=== PATIENT | female | born 1945 | race Caucasian/White ===

== ENCOUNTER 2021-03-31 13:31 | Observation (INO) | payer MEDICARE ==
--- NOTE | 2021-03-31 14:03 | ED ---
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 The patient states that since October she's been unable to ambulate. She has been in and out of a nursing facility in [place] and was recently discharged yesterday. She has been living with her daughter and son-in-law however they've been and able to care for at home. They've an unable to get her to the bathroom so they called EMS today to take her the hospital. The patient states that she has not been evaluated for her generalized weakness. She is unsure exactly what why or how it started. The patient states that she has no new complaints except for just having generalized weakness and inability to ambulate. She states that she does have a history of stroke with left-sided weakness which may be a little bit worse than normal however not significantly so. She is on chronic oxygen at 4 L for her COPD. She states that she has not felt more short of breath. She does admit to fevers however unsure exactly how high. No new cough. No chest pain. She admits to some abdominal pain with taking her pills however nothing currently. No nausea, vomiting. She does admit to intermittent episodes of diarrhea however denies any recent antibiotic use. She denies any dysuria or hematuria however states that she has had a history of UTI causing generalized weakness. The patient is amenable to placement. At baseline the patient says that she was able to ambulate with a walker or cane. Complaint: generalized weakness - Related Data Home Medications Medication Instructions Recorded Confirmed Albuterol Inhaler [Ventolin Hfa 2 puff INHALATION RT-DAILY 03/31/21 03/31/21 Inhaler] Albuterol Nebulized [Ventolin 2.5 mg INHALATION Q6H PRN 03/31/21 03/31/21 Nebulized] Ammonium Lactate Lotion 1 applic TOPICAL BID 03/31/21 03/31/21 [Lac-Hydrin 12% Lotion] Atorvastatin [Lipitor] 40 mg PO DAILY 03/31/21 03/31/21 Budesonide [Pulmicort Flexhaler] 1 puff INHALATION RT-BID 03/31/21 03/31/21 Clopidogrel [Plavix] 75 mg PO DAILY 03/31/21 03/31/21 DULoxetine HCL [Cymbalta] 30 mg PO DAILY 03/31/21 03/31/21 Dexamethasone [Decadron] 4 mg PO DAILY 03/31/21 03/31/21 Dexamethasone [Decadron] 6 mg PO DAILY 03/31/21 03/31/21 Docusate [Colace] 100 mg PO BID 03/31/21 03/31/21 Enoxaparin [Lovenox] 40 mg SQ Q12H 03/31/21 03/31/21 Furosemide [Lasix] 20 mg PO DAILY 03/31/21 03/31/21 INSULIN LISPRO (humaLOG) [humaLOG] See Protocol SQ ACHS 03/31/21 03/31/21 Ibuprofen [Motrin] 400 mg PO Q12H PRN 03/31/21 03/31/21 Levothyroxine Sodium [Synthroid] 100 mcg PO DAILY 03/31/21 03/31/21 Melatonin 3 mg PO HS 03/31/21 03/31/21 Metoprolol Tartrate [Lopressor] 25 mg PO DAILY 03/31/21 03/31/21 Mometasone Inhalr 220 Mcg/Puff 1 puff INHALATION RT-BID 03/31/21 03/31/21 [Asmanex] Multivitamins, Thera [Multivitamin 1 tab PO DAILY 03/31/21 03/31/21 (formulary)] Pantoprazole Sodium [Protonix] 40 mg PO DAILY 03/31/21 03/31/21 Sennosides [Senna] 17.2 mg PO BID 03/31/21 03/31/21 Tamsulosin HCl [Flomax] 0.4 mg PO DAILY 03/31/21 03/31/21 Tiotropium [place] [Spiriva] 2 puff INHALATION RT-DAILY 03/31/21 03/31/21 amLODIPine [Norvasc] 5 mg PO DAILY 03/31/21 03/31/21 guaiFENesin [guaiFENesin Oral 200 mg PO Q6H PRN 03/31/21 03/31/21 Solution] hydrALAZINE HCL [Apresoline] 25 mg PO BID 03/31/21 03/31/21 levETIRAcetam [Keppra] 500 mg PO Q12HR 03/31/21 03/31/21 predniSONE [Deltasone] 20 mg PO DAILY 03/31/21 03/31/21 traMADol HCL [Ultram] 50 mg PO Q8H PRN 03/31/21 03/31/21 Allergies Allergy/AdvReac Type Severity Reaction Status Date / Time Penicillins Allergy Unknown Verified 03/31/21 16:04 Review of Systems ROS Statement: Those systems with pertinent positive or pertinent negative responses have been documented in the HPI. ROS Other: All systems not noted in ROS Statement are negative. General Exam - General Exam Comments Initial Comments: Constitutional: Awake alert Appears comfortable, obese Head: Normocephalic atraumatic Eyes: no conjunctival injection No scleral icterus EOMI Neck: No JVD Supple Heart: Regular rate rhythm normal S1-S2 no murmurs Lungs: Conversational dyspnea Clear to auscultation bilaterally No wheezing No rales Abdomen: Soft nondistended nontender Extremities: Non edematous DP pulses intact Radial pulses intact Neuro: A&Ox3, 4/5 strength in bilateral lower extremities, 5 out of 5 strength with holding her arms up in upper extremities, cranial nerves II through XII are grossly intact No focal neurologic deficits Psych: Appropriate mood and affect Course Vital Signs 03/31/21 03/31/21 03/31/21 13:40 17:00 17:58 Temperature 97.8 F 98.2 F Pulse Rate 96 82 86 Respiratory 20 16 18 Rate Blood Pressure 130/78 148/78 151/88 O2 Sat by Pulse 99 98 99 Oximetry - Reevaluation(s) Reevaluation #1: 03/31/21 18:45 I spoke with Charles fire protection engineering technician about the patient. He stated that we could attempt to help find a place but may not be able to find placement for the patient. I spoke with son Alejandro and updated him that he may have to private pay or that we may not be able to place the patient overnight. He stated he understood. EKG Findings - EKG Comments: EKG Findings:: EKG showing normal sinus rhythm with a rate of 94. No abnormal ST segment changes or T-wave inversions. QTC is 440. Other intervals normal. No ectopy. Medical Decision Making - Medical Decision Making This is a 75-year-old female presents emergency department because of the family's inability take take care of her. The patient is not able to walk and family is unable to assist her or help her with her medications. She supposed to be on a CPAP at night and they do not have this as well. The patient also had evidence for skin breakdown on her sacral region. These appeared clean however. Unfortunately it sounds like the insurance has run up and I'm unsure if the patient can be able to be placed. I did speak with the social sciences department chair who was on-call who stated that they would attempt to help the son to find placement for however stated that he may need to pay out of pocket. The son was updated on this. I did speak with Dr. Monge who excepted the patient for observation for tonight however the patient may be discharged back to home tomorrow if placement is unable to be found. Some was updated on this and agrees with plan of care. - Lab Data Result diagrams: 03/31/21 15:07 03/31/21 15:07 Lab Results 03/31/21 03/31/21 03/31/21 Range/Units 15:07 15:07 15:07 WBC 10.6 (3.8-10.6) k/uL RBC 4.93 (3.80-5.40) m/uL Hgb 14.3 (11.4-16.0) gm/dL Hct 43.1 (34.0-46.0) % MCV 87.5 (80.0-100.0) fL MCH 29.0 (25.0-35.0) pg MCHC 33.1 (31.0-37.0) g/dL RDW 16.4 H (11.5-15.5) % Plt Count 187 (150-450) k/uL MPV 7.2 Neutrophils % 87 % Lymphocytes % 6 % Monocytes % 4 % Eosinophils % 2 % Basophils % 0 % Neutrophils # 9.2 H (1.3-7.7) k/uL Lymphocytes # 0.6 L (1.0-4.8) k/uL Monocytes # 0.4 (0-1.0) k/uL Eosinophils # 0.2 (0-0.7) k/uL Basophils # 0.0 (0-0.2) k/uL Anisocytosis Slight PT 10.4 (9.0-12.0) sec INR 1.0 (<1.2) APTT 20.1 L (22.0-30.0) sec Sodium (137-145) mmol/L Potassium (3.5-5.1) mmol/L Chloride (98-107) mmol/L Carbon Dioxide (22-30) mmol/L Anion Gap mmol/L BUN (7-17) mg/dL Creatinine (0.52-1.04) mg/dL Est GFR (CKD-EPI)AfAm (>60 ml/min/1.73 sqM) Est GFR (CKD-EPI)NonAf (>60 ml/min/1.73 sqM) Glucose (74-99) mg/dL Calcium (8.4-10.2) mg/dL Total Bilirubin (0.2-1.3) mg/dL AST (14-36) U/L ALT (4-34) U/L Alkaline Phosphatase (38-126) U/L Troponin I (0.000-0.034) ng/mL NT-Pro-B Natriuret Pep pg/mL Total Protein (6.3-8.2) g/dL Albumin (3.5-5.0) g/dL Lipase (23-300) U/L Urine Color Yellow Urine Appearance Clear (Clear) Urine pH 5.0 (5.0-8.0) Ur Specific [place] 1.015 (1.001-1.035) Urine Protein Negative (Negative) Urine Glucose (UA) Negative (Negative) Urine Ketones Negative (Negative) Urine Blood Negative (Negative) Urine Nitrite Negative (Negative) Urine Bilirubin Negative (Negative) Urine Urobilinogen <2.0 (<2.0) mg/dL Ur Leukocyte Esterase Negative (Negative) 03/31/21 03/31/21 03/31/21 Range/Units 15:07 15:07 15:07 WBC (3.8-10.6) k/uL RBC (3.80-5.40) m/uL Hgb (11.4-16.0) gm/dL Hct (34.0-46.0) % MCV (80.0-100.0) fL MCH (25.0-35.0) pg MCHC (31.0-37.0) g/dL RDW (11.5-15.5) % Plt Count (150-450) k/uL MPV Neutrophils % % Lymphocytes % % Monocytes % % Eosinophils % % Basophils % % Neutrophils # (1.3-7.7) k/uL Lymphocytes # (1.0-4.8) k/uL Monocytes # (0-1.0) k/uL Eosinophils # (0-0.7) k/uL Basophils # (0-0.2) k/uL Anisocytosis PT (9.0-12.0) sec INR (<1.2) APTT (22.0-30.0) sec Sodium 138 (137-145) mmol/L Potassium 4.7 (3.5-5.1) mmol/L Chloride 96 L (98-107) mmol/L Carbon Dioxide 34 H (22-30) mmol/L Anion Gap 8 mmol/L BUN 33 H (7-17) mg/dL Creatinine 0.67 (0.52-1.04) mg/dL Est GFR (CKD-EPI)AfAm >90 (>60 ml/min/1.73 sqM) Est GFR (CKD-EPI)NonAf 88 (>60 ml/min/1.73 sqM) Glucose 334 H (74-99) mg/dL Calcium 8.8 (8.4-10.2) mg/dL Total Bilirubin 0.7 (0.2-1.3) mg/dL AST 49 H (14-36) U/L ALT 73 H (4-34) U/L Alkaline Phosphatase 119 (38-126) U/L Troponin I 0.018 (0.000-0.034) ng/mL NT-Pro-B Natriuret Pep 345 pg/mL Total Protein 6.1 L (6.3-8.2) g/dL Albumin 3.9 (3.5-5.0) g/dL Lipase 75 (23-300) U/L Urine Color Urine Appearance (Clear) Urine pH (5.0-8.0) Ur Specific [place] (1.001-1.035) Urine Protein (Negative) Urine Glucose (UA) (Negative) Urine Ketones (Negative) Urine Blood (Negative) Urine Nitrite (Negative) Urine Bilirubin (Negative) Urine Urobilinogen (<2.0) mg/dL Ur Leukocyte Esterase (Negative) Disposition Clinical Impression: Ambulatory dysfunction, Sacral decubitus ulcer Disposition: ADMITTED IP TO THIS HOSP Condition: Stable Referrals: Suman Dela Cruz DO [Primary Care Provider] - 1-2 days
[2021-03-31 15:21] LABS: Anisocytosis Slight; Basophils % (A) 0 %; Eosinophils # (A) 0.2 k/uL (0-0.7); Eosinophils % (A) 2 %; HCT 43.1 % (34.0-46.0); HGB 14.3 gm/dL (11.4-16.0); Lymphocytes # (A) 0.6 k/uL (1.0-4.8); Lymphocytes % (A) 6 %; MCHC 33.1 g/dL (31.0-37.0); MCV 87.5 fL (80.0-100.0); Mean Platelet Volume 7.2; Monocytes # (A) 0.4 k/uL (0-1.0); Monocytes % (A) 4 %; Neutrophils # (A) 9.2 k/uL (1.3-7.7); Neutrophils % (A) 87 %; Platelet Count 187 k/uL (150-450); RBC 4.93 m/uL (3.80-5.40); RDW 16.4 % (11.5-15.5); WBC 10.6 k/uL (3.8-10.6)
--- NOTE | 2021-03-31 15:22 | XR ---
EXAMINATION TYPE: XR chest 1V portable DATE OF EXAM: 03/31/2021 COMPARISON: NONE HISTORY: Short of breath TECHNIQUE: Single view FINDINGS: There is poor inspiration and some elevation of the right diaphragm. There is no heart fail ure. Lungs are clear of consolidation. IMPRESSION: Poor inspiration. No pulmonary consolidation or heart failure.
[2021-03-31 15:30] LABS: ALT 73 U/L (4-34); AST 49 U/L (14-36); African American GFR (CKD) >90 (>60 ml/min/1.73 sqM); Albumin 3.9 g/dL (3.5-5.0); Alkaline Phosphatase 119 U/L (38-126); Anion Gap 8 mmol/L; Blood Urea Nitrogen 33 mg/dL (7-17); Calcium 8.8 mg/dL (8.4-10.2); Carbon Dioxide 34 mmol/L (22-30); Chloride 96 mmol/L (98-107); Glucose 334 mg/dL (74-99); Lipase 75 U/L (23-300); Non-African American GFR(CKD) 88 (>60 ml/min/1.73 sqM); Potassium 4.7 mmol/L (3.5-5.1); Sodium 138 mmol/L (137-145); Total Bilirubin 0.7 mg/dL (0.2-1.3); Total Protein 6.1 g/dL (6.3-8.2)
[2021-03-31 15:31] LABS: Prothrombin Time 10.4 sec (9.0-12.0)
[2021-03-31 15:46] LABS: Partial Thromboplastin Time 20.1 sec (22.0-30.0)
--- NOTE | 2021-03-31 17:34 | CT ---
EXAMINATION TYPE: CT brain wo con DATE OF EXAM: 03/31/2021 COMPARISON: None HISTORY: weakness, HX CVA CT DLP: 1142.4 mGycm Automated exposure control for dose reduction was used. There is cerebral cortical atrophy. There is no mass effect nor midline shift. There is no sign of in tracranial hemorrhage. There is wedge-shaped 2 cm area of hypodensity right posterior temporal lobe c onsistent with old cortical infarct. The calvarium is intact. IMPRESSION: Cerebral atrophy. Old right posterior temporal lobe infarct. No acute intracranial abnormality.
[2021-03-31 17:49] LABS: Appearance,Urine Clear (Clear); Bilirubin,Urine Negative (Negative); Blood,Urine Negative (Negative); Color,Urine Yellow; Glucose,Urine (UA) Negative (Negative); Ketones,Urine Negative (Negative); Leukocyte Esterase,Urine Negative (Negative); Nitrite,Urine Negative (Negative); Protein,Urine Negative (Negative); Specific Gravity,Urine 1.015 (1.001-1.035); Urobilinogen,Urine <2.0 mg/dL (<2.0)
[2021-03-31] MEDS ORDERED: NALOXONE 0.4 MG/ML 1 ML VIAL IV PRN (18:02)
[2021-03-31 21:29] LABS: Glucose,Whole Blood 302 mg/dL (75-99)
[2021-03-31] MEDS: INSULIN ASPART (NovoLOG) 100 UNIT/ML VIAL SQ SCH (21:47)
[2021-04-01] MEDS: HYDROcodone/APAP 5-325MG 1 EACH TAB PO PRN (02:25)
[2021-04-01 07:22] LABS: Glucose,Whole Blood 165 mg/dL (75-99)
[2021-04-01] MEDS: INSULIN ASPART (NovoLOG) 100 UNIT/ML VIAL SQ SCH ×5 (08:04→21:18)
[2021-04-01 11:29] LABS: Glucose,Whole Blood 184 mg/dL (75-99)
[2021-04-01] MEDS ORDERED: guaiFENesin SYRUP 100MG/5ML 200 MG/10 ML CUP PO PRN (16:00)
[2021-04-01] MEDS ORDERED: ALBUTEROL NEBULIZED 2.5 MG/3 ML INHALATION PRN (16:00)
[2021-04-01] MEDS ORDERED: traMADol 50 MG TAB PO PRN (16:00)
[2021-04-01 16:10] LABS: Glucose,Whole Blood 221 mg/dL (75-99)
[2021-04-01] MEDS ORDERED: IPRATROPIUM-ALBUTEROL 3 ML NEB INHALATION PRN (16:17)
--- NOTE | 2021-04-01 16:17 | P.HPIM ---
History of Present Illness H&P Date: 04/01/21 Chief Complaint: Generalized Weakness 75 year old woman with history of COPD on 4L home O2, IDDM, HTN/HLD, Hx CVA with left sided weakness presented for generalized weakness. Patient is a moderate historian, however, ER provider sign out and chart review supplements most of history. Patient recently had a stroke with residual left sided weakness, and was placed in rehab in mid-October. Unfortunately, patient did not progress well and after running out of rehab days under her medicare insurance she was discharged home to the care of her family. While there, they noticed that she had difficulty with ambulation and transfers, and was generally weak requiring a significant amount of assistance. They felt that they were unable to care for her adequately at home, and therefore, brought her into the ER with request for placement. Patient herself reports generalized weakness, but otherwise denies f/c/n/v, cp, palps, syncope, cough, dyspnea, abd pain, diarrhea, constipation, dysuria, melena, hematochezia, numbness/weakness of extremities. Patient is afebrile, HDS, and at baseline oxygen requirement. Labs and Images were reviewed. Patient admitted to medicine team for generalized weakness. Review of Systems All Systems reviewed and pertinent positives and negatives noted in HPI, all other symptoms are negative Past Medical History Additional Past Medical History / Comment(s): COPD,Bronchitis and Asthma. obese History of Any Multi-Drug Resistant Organisms: None Reported Past Surgical History: No Surgical Hx Reported Past Anesthesia/Blood Transfusion Reactions: No Reported Reaction Smoking Status: Never smoker Past Alcohol Use History: None Reported Past Drug Use History: None Reported Medications and Allergies Home Medications Medication Instructions Recorded Confirmed Type Albuterol Inhaler [Ventolin Hfa 2 puff INHALATION RT-DAILY 03/31/21 03/31/21 History Inhaler] Albuterol Nebulized [Ventolin 2.5 mg INHALATION Q6H PRN 03/31/21 03/31/21 History Nebulized] Ammonium Lactate Lotion 1 applic TOPICAL BID 03/31/21 03/31/21 History [Lac-Hydrin 12% Lotion] Atorvastatin [Lipitor] 40 mg PO DAILY 03/31/21 03/31/21 History Budesonide [Pulmicort Flexhaler] 1 puff INHALATION RT-BID 03/31/21 03/31/21 History Clopidogrel [Plavix] 75 mg PO DAILY 03/31/21 03/31/21 History DULoxetine HCL [Cymbalta] 30 mg PO DAILY 03/31/21 03/31/21 History Dexamethasone [Decadron] 4 mg PO DAILY 03/31/21 03/31/21 History Dexamethasone [Decadron] 6 mg PO DAILY 03/31/21 03/31/21 History Docusate [Colace] 100 mg PO BID 03/31/21 03/31/21 History Enoxaparin [Lovenox] 40 mg SQ Q12H 03/31/21 03/31/21 History Furosemide [Lasix] 20 mg PO DAILY 03/31/21 03/31/21 History INSULIN LISPRO (humaLOG) [humaLOG] See Protocol SQ ACHS 03/31/21 03/31/21 History Ibuprofen [Motrin] 400 mg PO Q12H PRN 03/31/21 03/31/21 History Levothyroxine Sodium [Synthroid] 100 mcg PO DAILY 03/31/21 03/31/21 History Melatonin 3 mg PO HS 03/31/21 03/31/21 History Metoprolol Tartrate [Lopressor] 25 mg PO DAILY 03/31/21 03/31/21 History Mometasone Inhalr 220 Mcg/Puff 1 puff INHALATION RT-BID 03/31/21 03/31/21 History [Asmanex] Multivitamins, Thera [Multivitamin 1 tab PO DAILY 03/31/21 03/31/21 History (formulary)] Pantoprazole Sodium [Protonix] 40 mg PO DAILY 03/31/21 03/31/21 History Sennosides [Senna] 17.2 mg PO BID 03/31/21 03/31/21 History Tamsulosin HCl [Flomax] 0.4 mg PO DAILY 03/31/21 03/31/21 History Tiotropium [place] [Spiriva] 2 puff INHALATION RT-DAILY 03/31/21 03/31/21 History amLODIPine [Norvasc] 5 mg PO DAILY 03/31/21 03/31/21 History guaiFENesin [guaiFENesin Oral 200 mg PO Q6H PRN 03/31/21 03/31/21 History Solution] hydrALAZINE HCL [Apresoline] 25 mg PO BID 03/31/21 03/31/21 History levETIRAcetam [Keppra] 500 mg PO Q12HR 03/31/21 03/31/21 History predniSONE [Deltasone] 20 mg PO DAILY 03/31/21 03/31/21 History traMADol HCL [Ultram] 50 mg PO Q8H PRN 03/31/21 03/31/21 History Allergies Allergy/AdvReac Type Severity Reaction Status Date / Time Penicillins Allergy Unknown Verified 03/31/21 16:04 Physical Exam Osteopathic Statement: *. No significant issues noted on an osteopathic structural exam other than those noted in the History and Physical/Consult. Vitals: Vital Signs Temp Pulse Pulse Resp BP BP Pulse Ox 04/01/21 13:37 98.2 F 111 H 20 147/80 98 04/01/21 08:00 107 H 20 04/01/21 07:48 97.9 F 107 H 20 152/80 96 04/01/21 03:00 98.2 F 64 17 152/82 97 03/31/21 22:00 98.7 F 85 20 141/86 94 L 03/31/21 20:40 98.9 F 84 20 147/89 98 03/31/21 20:00 98.2 F 82 17 129/82 96 03/31/21 17:58 98.2 F 86 18 151/88 99 03/31/21 17:00 82 16 148/78 98 Intake and Output 04/01/21 04/01/21 04/01/21 06:59 14:59 22:59 Other: Voiding Method Diaper Incontinent # Voids 2 Gen: awake, alert HEENT: normocephalic, atraumatic, good hearing acuity, moist mucous membranes Resp: good air exchange, breathing comfortably with no accessory muscle use, diminished breath sounds CVS: good distal perfusion x 4, regular rate and rhythm without murmurs GI: soft, NTTP, ND, appropriate bowel sounds, obese abdomen : no SPT, no CVAT, salomon catheter not present MSK: no pitting edema, no clubbing Neuro: non-focal, moving all extremities Psych: cooperative, euthymic mood Results CBC & Chem 7: 03/31/21 15:07 03/31/21 15:07 Labs: Abnormal Lab Results - Last 24 Hours (Table) 03/31/21 04/01/21 04/01/21 Range/Units 21:27 07:20 11:23 POC Glucose (mg/dL) 302 H 165 H 184 H (75-99) mg/dL Assessment and Plan Assessment: Generalized weakness History of CVA -Admit to observation -PT/OT -Nutrition consult -Up in chair for all meals -Ambulate as able -Orthostatics -Case management/social work to work on placement, insurance COPD with chronic respiratory failure on 4 L of home oxygen Diabetes type 2, insulin-dependent Hypertension Hyperlipidemia Hypothyroidism Mood disorder Seizure disorder GERD with esophagitis -Oxygen when necessary -duonebs PRN, albuterol PRN -Low-dose sliding scale insulin -Diabetic diet, pre-meal and bedtime sugar checks -Home medications were reviewed and reconciled Patient is a full code, warrants goals of care conversation in coming days Patient is on enoxaparin twice a day for DVT prophylaxis Patient's son is next of kin
[2021-04-01] MEDS: ENOXAPARIN 40 MG/0.4 ML SYRINGE SQ SCH (17:28)
[2021-04-01] MEDS ORDERED: FLUTICASONE 44 MCG INHALER INHALATION SCH (20:00)
[2021-04-01] MEDS: SENNOSIDES 8.6 MG TAB PO SCH (21:07)
[2021-04-01] MEDS: hydrALAZINE HCL 25 MG TAB PO SCH (21:08)
[2021-04-01] MEDS: AMMONIUM LACTATE 12% LOTION 225 GM BTL TOPICAL SCH (21:08)
[2021-04-01] MEDS: DOCUSATE 100 MG CAP PO SCH (21:08)
[2021-04-01] MEDS: MELATONIN 3 MG TABLET PO SCH (21:08)
[2021-04-01 21:11] LABS: Glucose,Whole Blood 143 mg/dL (75-99)
[2021-04-01] MEDS: FLUTICASONE 110 MCG INHALER INHALATION SCH (21:14)
[2021-04-01] MEDS: levETIRAcetam 500 MG TAB PO SCH (22:15)
[2021-04-02] MEDS: LEVOTHYROXINE 100 MCG TAB PO SCH (04:32)
[2021-04-02] MEDS: ENOXAPARIN 40 MG/0.4 ML SYRINGE SQ SCH ×2 (04:32→15:21)
[2021-04-02] MEDS: HYDROcodone/APAP 5-325MG 1 EACH TAB PO PRN ×2 (04:35→19:26)
[2021-04-02 07:16] LABS: Glucose,Whole Blood 146 mg/dL (75-99)
[2021-04-02] MEDS: CLOPIDOGREL 75 MG TAB PO SCH (07:23)
[2021-04-02] MEDS: amLODIPine 5 MG TAB PO SCH (07:23)
[2021-04-02] MEDS: METOPROLOL TARTRATE 25 MG TAB PO SCH (07:23)
[2021-04-02] MEDS: DOCUSATE 100 MG CAP PO SCH ×2 (07:23→19:27)
[2021-04-02] MEDS: predniSONE 20 MG TAB PO SCH (07:23)
[2021-04-02] MEDS: FUROSEMIDE 20 MG TAB PO SCH (07:23)
[2021-04-02] MEDS: SENNOSIDES 8.6 MG TAB PO SCH ×2 (07:23→19:27)
[2021-04-02] MEDS: hydrALAZINE HCL 25 MG TAB PO SCH ×2 (07:23→19:26)
[2021-04-02] MEDS: MULTIVITAMINS, THERA 1 EACH TAB PO SCH (07:23)
[2021-04-02] MEDS: TAMSULOSIN 0.4 MG CAP.ER.24H PO SCH (07:24)
[2021-04-02] MEDS: levETIRAcetam 500 MG TAB PO SCH ×2 (07:24→19:26)
[2021-04-02] MEDS: DULoxetine HCL 30 MG CAPSULE.DR PO SCH (07:24)
[2021-04-02] MEDS: ATORVASTATIN 40 MG TAB PO SCH (07:24)
[2021-04-02] MEDS: PANTOPRAZOLE 40 MG TABLET PO SCH (07:24)
[2021-04-02] MEDS: INSULIN ASPART (NovoLOG) 100 UNIT/ML VIAL SQ SCH ×7 (07:25→20:43)
[2021-04-02] MEDS: ALBUTEROL HFA INHALER INHALATION SCH (09:13)
[2021-04-02] MEDS: FLUTICASONE 110 MCG INHALER INHALATION SCH ×2 (09:14→21:08)
[2021-04-02] MEDS: TIOTROPIUM 2.5 MCG INHALER INHALATION SCH (09:14)
[2021-04-02 11:22] LABS: Glucose,Whole Blood 185 mg/dL (75-99)
--- NOTE | 2021-04-02 14:55 | P.PN ---
Subjective Progress Note Date: 04/02/21 Principal diagnosis: CC: generalized weakness 75 year old woman with history of COPD on 4L home O2, IDDM, HTN/HLD, Hx CVA with left sided weakness presented for generalized weakness. Patient also complaining of weakness. Patient was seen by physical therapy was recommending [facility]. Patient otherwise denies any acute complaints. She denies any shortness of breath, chest pain, nausea and vomiting. Patient states that she has weakness on her left side due to the stroke. She states that her family can no longer take care of her at home. She is amenable to getting placed. Objective - Vital Signs Vital signs: Vital Signs Temp 98.3 F 04/02/21 07:47 Pulse 101 H 04/02/21 08:00 Resp 18 04/02/21 08:00 BP 116/71 04/02/21 07:47 Pulse Ox 95 04/02/21 09:15 Intake & Output 04/01/21 04/02/21 04/02/21 18:59 06:59 18:59 Output Total 300 Balance -300 Output: Urine 300 Other: Voiding Method Diaper Diaper Diaper Incontinent Incontinent Incontinent # Voids 4 4 # Bowel Movements 2 - Exam General examination - Alert and Oriented 3 in NAD, appears chronically debilitated Heart - + S1S2 no murmurs Lungs -diminished breath sounds bilaterally Abdomen soft NT ND +ve BS morbidly obese Extremities -+1 pitting edema bilateral lower extremities STAGE BUILDER -generalized weakness with left greater than right Psych - Calm and cooperative - Labs CBC & Chem 7: 03/31/21 15:07 03/31/21 15:07 Labs: Abnormal Lab Results - Last 24 Hours (Table) 04/01/21 04/01/21 04/02/21 Range/Units 16:09 21:07 07:14 POC Glucose (mg/dL) 221 H 143 H 146 H (75-99) mg/dL 04/02/21 Range/Units 11:20 POC Glucose (mg/dL) 185 H (75-99) mg/dL Assessment and Plan Assessment: 75 year old woman with history of COPD on 4L home O2, IDDM, HTN/HLD, Hx CVA with left sided weakness presented for generalized weakness. Generalized weakness History of CVA -Admit to observation -PT/OT -> recommends rehabilitation. utility worker has a bed however waiting for insurance authorization -Nutrition consult -Up in chair for all meals -Ambulate as able COPD with chronic respiratory failure on 4 L of home oxygen Diabetes type 2, insulin-dependent Hypertension Hyperlipidemia Hypothyroidism Mood disorder Seizure disorder GERD with esophagitis -Oxygen when necessary -duonebs PRN, albuterol PRN -Low-dose sliding scale insulin -Diabetic diet, pre-meal and bedtime sugar checks -Home medications were reviewed and reconciled Disposition: Awaiting for insurance authorization Patient is a full code Patient is on enoxaparin twice a day for DVT prophylaxis Patient's son is next of kin
[2021-04-02] MEDS: AMMONIUM LACTATE 12% LOTION 225 GM BTL TOPICAL SCH ×2 (15:22→19:22)
[2021-04-02 16:35] LABS: Glucose,Whole Blood 281 mg/dL (75-99)
[2021-04-02] MEDS: MELATONIN 3 MG TABLET PO SCH (19:26)
[2021-04-02 20:21] LABS: Glucose,Whole Blood 247 mg/dL (75-99)
[2021-04-03] MEDS: ENOXAPARIN 40 MG/0.4 ML SYRINGE SQ SCH ×3 (05:34→22:01)
[2021-04-03] MEDS: LEVOTHYROXINE 100 MCG TAB PO SCH (05:35)
[2021-04-03 06:43] LABS: Glucose,Whole Blood 152 mg/dL (75-99)
[2021-04-03] MEDS: INSULIN ASPART (NovoLOG) 100 UNIT/ML VIAL SQ SCH ×4 (07:57→20:45)
[2021-04-03] MEDS: MULTIVITAMINS, THERA 1 EACH TAB PO SCH (07:58)
[2021-04-03] MEDS: amLODIPine 5 MG TAB PO SCH (07:58)
[2021-04-03] MEDS: PANTOPRAZOLE 40 MG TABLET PO SCH (07:58)
[2021-04-03] MEDS: levETIRAcetam 500 MG TAB PO SCH ×2 (07:58→20:44)
[2021-04-03] MEDS: SENNOSIDES 8.6 MG TAB PO SCH ×2 (07:58→20:08)
[2021-04-03] MEDS: FUROSEMIDE 20 MG TAB PO SCH (07:58)
[2021-04-03] MEDS: DOCUSATE 100 MG CAP PO SCH ×2 (07:58→20:08)
[2021-04-03] MEDS: hydrALAZINE HCL 25 MG TAB PO SCH ×2 (07:58→20:45)
[2021-04-03] MEDS: TAMSULOSIN 0.4 MG CAP.ER.24H PO SCH (07:58)
[2021-04-03] MEDS: AMMONIUM LACTATE 12% LOTION 225 GM BTL TOPICAL SCH ×2 (07:59→20:44)
[2021-04-03] MEDS: ATORVASTATIN 40 MG TAB PO SCH (07:59)
[2021-04-03] MEDS: predniSONE 20 MG TAB PO SCH (07:59)
[2021-04-03] MEDS: CLOPIDOGREL 75 MG TAB PO SCH (07:59)
[2021-04-03] MEDS: DULoxetine HCL 30 MG CAPSULE.DR PO SCH (07:59)
[2021-04-03] MEDS: METOPROLOL TARTRATE 25 MG TAB PO SCH (07:59)
[2021-04-03] MEDS: FLUTICASONE 110 MCG INHALER INHALATION SCH ×2 (09:37→22:17)
[2021-04-03] MEDS: ALBUTEROL HFA INHALER INHALATION SCH (09:37)
[2021-04-03] MEDS: TIOTROPIUM 2.5 MCG INHALER INHALATION SCH (09:37)
[2021-04-03 11:13] LABS: Glucose,Whole Blood 185 mg/dL (75-99)
--- NOTE | 2021-04-03 12:48 | P.PN ---
<Kaz Hamilton - Last Filed: 04/03/21 12:32> Subjective Progress Note Date: 04/03/21 Hospital course: Patient is a 75-year-old female with a past medical history of CAD, hypertensi on, hyperlipidemia, insulin-dependent diabetes mellitus, CVA with left-sided residual deficits, and COPD home oxygen dependent on 4 L at all times. Patient presented to the emergency department with a chief complaint of weakness and family's inability to continue to care for her, requesting assistance with placement. chest x-ray completed showing no acute cardiopulmonary process. CT brain showing cerebral atrophy with old right posterior temporal lobe infarct negative for acute intercranial abnormalities.EKG showing normal sinus rhythm at 94 bpm negative for any T-wave or ST abnormalities. Patient was seen and fully evaluated by physical and occupational therapy recommending subacute rehabi litation as patient is a high risk for falls with poor level of function and requiring total assist. 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 Physical exam: Patient was seen and fully evaluated at the bedside. She reports continued generalized weakness. Patient unable to assist with rolling onto side or lifting lower extremities. Patient denies having headache, lightheadedness, dizziness, chest pain or palpitations, increased shortness of breath, abdominal pain, nausea, vomiting, or experiencing any new or increased numbness/tingling of extremities. General: non toxic, no distress, appears at stated age. morbidly obese. Derm: warm, dry Head: atraumatic, normocephalic, symmetric Eyes: EOMI, no lid lag, anicteric sclera Mouth: no lip lesion, mucus membranes moist Cardiovascular: S1S2 reg, no murmur, positive posterior tibial pulse bilateral, Lungs: CTA bilateral, no rhonchi, no rales , no accessory muscle use Abdominal: obese abdomen soft, nontender to palpation, no guarding, no appreciable organomegaly Ext: no gross muscle atrophy, no edema, no contractures Neuro: left-sided deficits from previous CVA, generalized weakness unable to lift lower extremities. Psych: Alert, oriented, appropriate affect Plan of care: Generalized weakness -PT/OT following and recommending subacute rehabilitation as patient is a high risk for falls with poor level of function and requiring total assist. -Insurance authorization for subacute rehab facility was denied per their reports that patient has made no progress or decline from previous subacute rehabilitation stay. 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 -Fall precautions and provide assistance as needed. COPD home oxygen dependent on 4 L -Continue oxygenation as needed to maintain SpO2 equal to or greater than 92%. -Encourage incentive spirometry, 10-15 times hourly while awake. Hypertension -Monitor vital signs and continue daily medication management with amlodipine and metoprolol. Hyperlipidemia -Continue daily medication management with atorvastatin. -Heart healthy carb consistent diet. Insulin-dependent diabetes mellitus type 2 -Glycemic protocol with NovoLog sliding scale History of CVA with left-sided residual deficits -Continue Plavix and atorvastatin CODE STATUS: Full code DVT prophylaxis: SCDs Discussed with: Patient and RN Anticipated discharge date: Pending insurance authorization and placement Anticipated discharge place: [facility] A total of 45 minutes was spent on the care of this complex patient more than 50% of the time was spent in counseling and care coordination. Objective - Vital Signs Vital signs: Vital Signs Temp 98.1 F 04/03/21 08:00 Pulse 95 04/03/21 08:00 Resp 18 04/03/21 08:00 BP 111/73 04/03/21 08:00 Pulse Ox 94 L 04/03/21 08:00 Intake & Output 04/02/21 04/03/21 04/03/21 18:59 06:59 18:59 Intake Total 480 Output Total 400 775 Balance -400 -775 480 Intake: Oral 480 Output: Urine 400 775 Other: Voiding Method Diaper Diaper Incontinent Incontinent # Voids 700 - Labs CBC & Chem 7: 03/31/21 15:07 03/31/21 15:07 Labs: Abnormal Lab Results - Last 24 Hours (Table) 04/02/21 04/02/21 04/02/21 Range/Units 11:20 16:33 20:19 POC Glucose (mg/dL) 185 H 281 H 247 H (75-99) mg/dL 04/03/21 Range/Units 06:41 POC Glucose (mg/dL) 152 H (75-99) mg/dL <Lesia Antoine - Last Filed: 04/03/21 16:57> Subjective Kaz Hamilton NP rendered care for this patient independently, reviewed the findings and plan as documented in the note above. I did not physically speak with or examine the patient on this date. Objective - Vital Signs Vital signs: Vital Signs Temp 98.3 F 04/03/21 13:45 Pulse 88 04/03/21 13:45 Resp 16 04/03/21 13:45 BP 105/54 04/03/21 13:45 Pulse Ox 93 L 04/03/21 13:45 Intake & Output 04/02/21 04/03/21 04/03/21 18:59 06:59 18:59 Intake Total 680 Output Total 400 775 Balance -400 -775 680 Intake: Oral 680 Output: Urine 400 775 Other: Voiding Method Diaper Diaper Diaper Incontinent Incontinent Incontinent # Voids 700 - Labs CBC & Chem 7: 03/31/21 15:07 03/31/21 15:07 Labs: Abnormal Lab Results - Last 24 Hours (Table) 04/02/21 04/03/21 04/03/21 Range/Units 20:19 06:41 11:12 POC Glucose (mg/dL) 247 H 152 H 185 H (75-99) mg/dL 04/03/21 Range/Units 16:14 POC Glucose (mg/dL) 278 H (75-99) mg/dL
[2021-04-03 16:16] LABS: Glucose,Whole Blood 278 mg/dL (75-99)
[2021-04-03 19:17] VITALS: RESP 18
[2021-04-03 20:36] LABS: Glucose,Whole Blood 179 mg/dL (75-99)
[2021-04-03] MEDS: MELATONIN 3 MG TABLET PO SCH (20:44)
[2021-04-04 02:17] VITALS: PULSE 91
[2021-04-04] MEDS: LEVOTHYROXINE 100 MCG TAB PO SCH (05:14)
[2021-04-04 06:52] LABS: Glucose,Whole Blood 142 mg/dL (75-99)
[2021-04-04 07:30] VITALS: BP 143/91; TEMP 98.2
[2021-04-04] MEDS: DULoxetine HCL 30 MG CAPSULE.DR PO SCH (07:45)
[2021-04-04] MEDS: levETIRAcetam 500 MG TAB PO SCH (07:45)
[2021-04-04] MEDS: DOCUSATE 100 MG CAP PO SCH (07:45)
[2021-04-04] MEDS: CLOPIDOGREL 75 MG TAB PO SCH (07:46)
[2021-04-04] MEDS: hydrALAZINE HCL 25 MG TAB PO SCH (07:46)
[2021-04-04] MEDS: SENNOSIDES 8.6 MG TAB PO SCH (07:46)
[2021-04-04] MEDS: MULTIVITAMINS, THERA 1 EACH TAB PO SCH (07:46)
[2021-04-04] MEDS: ATORVASTATIN 40 MG TAB PO SCH (07:46)
[2021-04-04] MEDS: METOPROLOL TARTRATE 25 MG TAB PO SCH (07:46)
[2021-04-04] MEDS: FUROSEMIDE 20 MG TAB PO SCH (07:46)
[2021-04-04] MEDS: predniSONE 20 MG TAB PO SCH (07:47)
[2021-04-04] MEDS: AMMONIUM LACTATE 12% LOTION 225 GM BTL TOPICAL SCH (07:47)
[2021-04-04] MEDS: PANTOPRAZOLE 40 MG TABLET PO SCH (07:47)
[2021-04-04] MEDS: amLODIPine 5 MG TAB PO SCH (07:47)
[2021-04-04] MEDS: TAMSULOSIN 0.4 MG CAP.ER.24H PO SCH (07:47)
[2021-04-04] MEDS: FLUTICASONE 110 MCG INHALER INHALATION SCH (09:50)
[2021-04-04] MEDS: INSULIN ASPART (NovoLOG) 100 UNIT/ML VIAL SQ SCH ×2 (10:40→12:40)
[2021-04-04 11:04] LABS: Glucose,Whole Blood 259 mg/dL (75-99)
--- NOTE | 2021-04-04 12:11 | P.DS ---
<Kaz Hamilton - Last Filed: 04/04/21 12:06> Providers Expected date of discharge: 04/04/21 Hospital Course: Discharge Diagnosis: Generalized weakness COPD home oxygen dependent on 4 L Hypertension Hyperlipidemia Insulin-dependent diabetes mellitus type 2 History of CVA with left-sided residual deficits Hospital Course: Patient is a 75-year-old female with a past medical history of CAD, hypertension, hyperlipidemia, insulin-dependent diabetes mellitus, CVA with left-sided residual deficits, and COPD home oxygen dependent on 4 L at all times. Patient presented to the emergency department with a chief complaint of weakness and family's inability to continue to care for her, requesting assistance with placement. chest x-ray completed showing no acute cardiopulmonary process. CT brain showing cerebral atrophy with old right posterior temporal lobe infarct negative for acute intercranial abnormalities.EKG showing normal sinus rhythm at 94 bpm negative for any T-wave or ST abnormalities. Patient was seen and fully evaluated by physical and occupational therapy recommending subacute rehabilitation as patient is a high risk for falls with poor level of function and requiring total assist. Insurance authorization for subacute rehab facility was denied per their reports that patient has made no progress or decline from previous subacute rehabilitation stay, dialysis social worker woeked with family and arrangements have been made for placement in long-term care facility. Pt stable for discharge to long- term care facility at this time. Prior to discharge, med rec was reevaluated by filter changing technician. Lovenox and prednisone were discontinued as patient was no longer taking these. Physical exam: Patient was seen and fully evaluated at the bedside. She reports continued generalized weakness and denies having headache, lightheadedness, dizziness, chest pain or palpitations, increased shortness of breath, abdominal pain, nausea, vomiting, or experiencing any new or increased numbness/tingling of extremities. General: non toxic, no distress, appears at stated age. morbidly obese. Derm: warm, dry Head: atraumatic, normocephalic, symmetric Eyes: EOMI, no lid lag, anicteric sclera Mouth: no lip lesion, mucus membranes moist Cardiovascular: S1S2 reg, no murmur, positive posterior tibial pulse bilateral, Lungs: CTA bilateral, no rhonchi, no rales , no accessory muscle use Abdominal: obese abdomen soft, nontender to palpation, no guarding, no appreciable organomegaly Ext: no gross muscle atrophy, no edema, no contractures Neuro: left-sided deficits from previous CVA, generalized weakness unable to lift lower extremities. Psych: Alert, oriented, appropriate affect A total of 45 minutes of time were spent preparing this complex discharge summary. Patient Condition at Discharge: Stable Plan - Discharge Summary New Discharge Prescriptions: Continue Albuterol Inhaler [Ventolin Hfa Inhaler] 2 puff INHALATION RT-DAILY Tiotropium [place] [Spiriva] 2 puff INHALATION RT-DAILY Mometasone Inhalr 220 Mcg/Puff [Asmanex] 1 puff INHALATION RT-BID Metoprolol Tartrate [Lopressor] 25 mg PO DAILY guaiFENesin [guaiFENesin Oral Solution] 200 mg PO Q6H PRN PRN Reason: Cough Furosemide [Lasix] 20 mg PO DAILY Docusate [Colace] 100 mg PO BID Albuterol Nebulized [Ventolin Nebulized] 2.5 mg INHALATION Q6H PRN PRN Reason: Shortness Of Breath traMADol HCL [Ultram] 50 mg PO Q8H PRN PRN Reason: MODERATE/SEVERE PAIN Tamsulosin HCl [Flomax] 0.4 mg PO DAILY Pantoprazole Sodium [Protonix] 40 mg PO DAILY Multivitamins, Thera [Multivitamin (formulary)] 1 tab PO DAILY Melatonin 3 mg PO HS Levothyroxine Sodium [Synthroid] 100 mcg PO DAILY levETIRAcetam [Keppra] 500 mg PO Q12HR hydrALAZINE HCL [Apresoline] 25 mg PO BID INSULIN LISPRO (humaLOG) [humaLOG] See Protocol SQ ACHS DULoxetine HCL [Cymbalta] 30 mg PO DAILY Clopidogrel [Plavix] 75 mg PO DAILY Budesonide [Pulmicort Flexhaler] 1 puff INHALATION RT-BID Atorvastatin [Lipitor] 40 mg PO DAILY amLODIPine [Norvasc] 5 mg PO DAILY Ammonium Lactate Lotion [Lac-Hydrin 12% Lotion] 1 applic TOPICAL BID Discontinued predniSONE [Deltasone] 20 mg PO DAILY Sennosides [Senna] 17.2 mg PO BID Enoxaparin [Lovenox] 40 mg SQ Q12H Dexamethasone [Decadron] 4 mg PO DAILY Ibuprofen [Motrin] 400 mg PO Q12H PRN PRN Reason: Mild Pain Dexamethasone [Decadron] 6 mg PO DAILY Discharge Medication List Albuterol Inhaler [Ventolin Hfa Inhaler] 2 puff INHALATION RT-DAILY 03/31/21 [History] Albuterol Nebulized [Ventolin Nebulized] 2.5 mg INHALATION Q6H PRN 03/31/21 [History] Ammonium Lactate Lotion [Lac-Hydrin 12% Lotion] 1 applic TOPICAL BID 03/31/21 [History] Atorvastatin [Lipitor] 40 mg PO DAILY 03/31/21 [History] Budesonide [Pulmicort Flexhaler] 1 puff INHALATION RT-BID 03/31/21 [History] Clopidogrel [Plavix] 75 mg PO DAILY 03/31/21 [History] DULoxetine HCL [Cymbalta] 30 mg PO DAILY 03/31/21 [History] Docusate [Colace] 100 mg PO BID 03/31/21 [History] Furosemide [Lasix] 20 mg PO DAILY 03/31/21 [History] INSULIN LISPRO (humaLOG) [humaLOG] See Protocol SQ ACHS 03/31/21 [History] Levothyroxine Sodium [Synthroid] 100 mcg PO DAILY 03/31/21 [History] Melatonin 3 mg PO HS 03/31/21 [History] Metoprolol Tartrate [Lopressor] 25 mg PO DAILY 03/31/21 [History] Mometasone Inhalr 220 Mcg/Puff [Asmanex] 1 puff INHALATION RT-BID 03/31/21 [History] Multivitamins, Thera [Multivitamin (formulary)] 1 tab PO DAILY 03/31/21 [History] Pantoprazole Sodium [Protonix] 40 mg PO DAILY 03/31/21 [History] Tamsulosin HCl [Flomax] 0.4 mg PO DAILY 03/31/21 [History] Tiotropium [place] [Spiriva] 2 puff INHALATION RT-DAILY 03/31/21 [History] amLODIPine [Norvasc] 5 mg PO DAILY 03/31/21 [History] guaiFENesin [guaiFENesin Oral Solution] 200 mg PO Q6H PRN 03/31/21 [History] hydrALAZINE HCL [Apresoline] 25 mg PO BID 03/31/21 [History] levETIRAcetam [Keppra] 500 mg PO Q12HR 03/31/21 [History] traMADol HCL [Ultram] 50 mg PO Q8H PRN 03/31/21 [History] Follow up Appointment(s)/Referral(s): Suman Dela Cruz DO [Primary Care Provider] - 1-2 days Discharge Disposition: TRANSFER TO SNF/ECF <Lesia Antoine - Last Filed: 04/04/21 17:30> Providers Date of admission: 03/31/21 18:03 Attending physician: Zohra Damon MD Primary care physician: Suman Dela Cruz [facility] Course: Kaz Hamilton NP rendered care for this patient independently, reviewed the findings and plan as documented in the note above. I did not physically speak with or examine the patient on this date.
[2021-04-04] MEDS: TIOTROPIUM 2.5 MCG INHALER INHALATION SCH (12:35)
[2021-04-04] MEDS: ALBUTEROL HFA INHALER INHALATION SCH (12:35)
== END 2021-04-04 14:11 ==
LOC: EC 13:31 → 4SSUR 18:03
PROVIDERS: ADMIT Internal Medicine; ATTEND Internal Medicine
DX: R53.1 Weakness (principal); I69.354 Hemiplegia and hemiparesis following cerebral infarction affecting left non-dominant side; J96.10 Chronic respiratory failure, unspecified whether with hypoxia or hypercapnia; J44.9 Chronic obstructive pulmonary disease, unspecified; Z99.81 Dependence on supplemental oxygen; E11.9 Type 2 diabetes mellitus without complications; E78.5 Hyperlipidemia, unspecified; I10 Essential (primary) hypertension; R26.9 Unspecified abnormalities of gait and mobility; L89.159 Pressure ulcer of sacral region, unspecified stage; I25.10 Atherosclerotic heart disease of native coronary artery without angina pectoris; K21.9 Gastro-esophageal reflux disease without esophagitis; E03.9 Hypothyroidism, unspecified; F39 Unspecified mood [affective] disorder; G40.909 Epilepsy, unspecified, not intractable, without status epilepticus; E66.01 Morbid (severe) obesity due to excess calories; Z68.44 Body mass index [BMI] 60.0-69.9, adult; R19.7 Diarrhea, unspecified; Z79.02 Long term (current) use of antithrombotics/antiplatelets; Z79.51 Long term (current) use of inhaled steroids; Z79.890 Hormone replacement therapy; Z79.4 Long term (current) use of insulin; Z79.899 Other long term (current) drug therapy; Z88.8 Allergy status to other drugs, medicaments and biological substances; Z87.440 Personal history of urinary (tract) infections
CPT/HCPCS: 96372 ×3; 99285; 36415; 94640 ×7; 93005; 97110 ×2; 97162; 97166; 83880; 80053; 83690; 84484; 85025; 85610; 85730; 81003; 87635; 71045; 70450; G0378 ×5; J1650 ×3; J7512 ×3